=== PATIENT | female | born 1960 | race Caucasian/White ===

== ENCOUNTER 2018-02-25 05:31 | Outpatient (CLI) | payer OTHER ==
[~2018-02-25] VITALS: Ht 157.5 cm; Wt 86.2 kg
[~2018-02-25 05:31] MED LIST: AMOX-355 PO; CLN.1T PO; HYDR1TAB PO; PRD20T PO; TRIA1TAB3 PO
[2018-02-25] MEDS ORDERED: ASPI-586 PO (15:49)
[2018-02-25] MEDS ORDERED: LOVA20TA2 PO (15:49)
[2018-02-25] MEDS ORDERED: METO100T12 PO ×2 (15:49→15:54)
[2018-02-25] MEDS ORDERED: HYDR25TA4 PO (15:49)
[2018-02-25] MEDS ORDERED: FEXO-46 PO (15:49)
[2018-02-25] MEDS ORDERED: RANI-515 PO (15:49)
[2018-02-25] MEDS ORDERED: NAPR-915 PO (15:49)
== END 2018-02-25 16:00 ==
LOC: PREOP 05:31
PROVIDERS: ATTEND Otolaryngology Otolaryngology/Facial Plastic Surgery
DX: Z01.818 Encounter for other preprocedural examination (principal)

== ENCOUNTER 2018-03-05 06:53 | Day surgery (SDC) | payer OTHER ==
[~2018-03-05] VITALS: Ht 157.5 cm; Wt 86.2 kg
[~2018-03-05 06:53] MED LIST changes: +ASPI-586 PO; +FEXO-46 PO; +HYDR25TA4 PO; +LOVA20TA2 PO; +METO100T12 PO; +NAPR-915 PO; +RANI-515 PO
[2018-03-05 07:10] VITALS: BP 128/81
[2018-03-05] MEDS ORDERED: LACTATED RINGERS 1,000 ML IV PRN (07:20)
[2018-03-05] MEDS ORDERED: FAMOTIDINE 20MG/2ML IV (PEPCID) ONE (07:25)
[2018-03-05] MEDS ORDERED: AMPICILLIN/SULBACTAM INJECTION 1.5 GM in NS (IVPB) 100 ML IV ONE (07:30)
[2018-03-05] MEDS ORDERED: HYDROCORTISONE 100 MG/2 ML (Solu-CORTEF) VIAL IV ONE (07:30)
[2018-03-05] MEDS ORDERED: FAMOTIDINE 20MG/2ML IV (PEPCID) IV ONE (07:30)
[2018-03-05] MEDS ORDERED: ONDANSETRON 4 MG/2 ML (SDV) Z0FRAN ONE (07:40)
[2018-03-05] MEDS ORDERED: SEVOFLURANE (ULTANE) 15 ML INHAL SOLN ONE ×5 (07:40→09:27)
[2018-03-05] MEDS ORDERED: LIDOCAINE PF 2% 5 ML (XYLOCAINE) VIAL ONE (07:40)
[2018-03-05] MEDS ORDERED: ROCURONIUM 10 MG/ML 5 ML SYRINGE IV ONE (07:40)
[2018-03-05] MEDS ORDERED: proPOfol 200 MG/20 ML (DIPRIVAN) VIAL IV ONE (07:40)
[2018-03-05] MEDS ORDERED: DEXAMETHASONE 10 MG/ML (DECADRON) 1 ML VIAL ONE (07:40)
[2018-03-05] MEDS ORDERED: MIDAZOLAM 2 MG/2 ML (VERSED) VIAL ONE (07:41)
[2018-03-05] MEDS ORDERED: fentaNYL INJECTION 100 MCG/2 ML AMP ONE ×2 (07:41→09:29)
[2018-03-05] MEDS ORDERED: LIDOCAINE/EPI 1%-1:200,000 (XYLOCAINE) 10 ML VIAL ONE (08:34)
[2018-03-05] MEDS ORDERED: COCAINE HCL 4% 2 ML SYR ONE (08:34)
[2018-03-05] MEDS ORDERED: PHENYLEPHRINE 0.5% NASAL SPR (NEO-SYNEPHRINE) REG ONE (08:34)
[2018-03-05] MEDS ORDERED: BSS 15 ML ONE (08:34)
[2018-03-05] MEDS ORDERED: NEOSTIGMINE 1 MG/ML 5 ML SYRINGE ONE (09:44)
[2018-03-05] MEDS ORDERED: GLYCOPYRROLATE 0.2 MG/ML (ROBINUL) 2 ML VIAL ONE (09:44)
--- NOTE | 2018-03-05 10:00 | Progress Note-Post Operative ---
Post-Operative Progess Note Surgeon (s)/Technical Business Systems Analyst (s) Surgeon HUAN ZULETA MD Technical Business Systems Analyst n/a Pre-Operative Diagnosis CHRONIC SINUSITIS Post-Operative Diagnosis same Post-Op Procedure Note Date of Procedure: March 05, 2018 Name of Procedure Performed: Bilat Revision ESS, Bilat Red of Inf Turbs Description & Findings Description and Findings: n/a Anesthesia Type get Estimated Blood Loss minimal Packing none. Specimen(s) collected/removed bilat chroic sinusitis HUAN ZULETA MD March 05, 2018 10:00 am
[2018-03-05] MEDS ORDERED: D5 1/2 NS W/KCL 20 MEQ/L 1,000 ML IV SCH (10:01)
--- NOTE | 2018-03-05 10:01 | Progress Note-Pre Operative ---
Pre-Operative Progress Note H&P Reviewed The H&P was reviewed, patient examined and no changes noted. Date Seen by Provider: March 05, 2018 Time Seen by Provider: 08: Date H&P Reviewed: March 05, 2018 Time H&P Reviewed: :30 Pre-Operative Diagnosis: Bilat Chronic Sinsutis, Bilat HYper of Inf Turbs, REc headaches HUAN ZULETA MD March 05, 2018 10:01 am
[2018-03-05] MEDS ORDERED: MEPERIDINE (DEMEROL) INJ 50 MG/ML IVP PRN (10:15)
[2018-03-05] MEDS ORDERED: ACETAMINOPHEN 325 MG TABLET/CAPLET (TYLENOL) PO PRN (10:15)
[2018-03-05] MEDS ORDERED: ONDANSETRON 4 MG/2 ML (SDV) Z0FRAN IVP PRN (10:15)
[2018-03-05] MEDS ORDERED: morphine INJ 10 MG/ML 1ML (SYR OR VIAL) IVP PRN (10:15)
[2018-03-05] MEDS ORDERED: PROMETHAZINE INJ 25 MG/ML (PHENERGAN) AMP IVP PRN (10:15)
[2018-03-05] MEDS ORDERED: predniSONE 20 MG TAB PO ONE (10:15)
[2018-03-05] MEDS ORDERED: HYDROcodone/APAP 5 MG/325 MG (LORTAB) TAB PO PRN (10:15)
[2018-03-05 11:00] VITALS: BP 140/85
[2018-03-05] MEDS ORDERED: PRD20T PO (11:18)
[2018-03-05] MEDS ORDERED: AMOX-355 PO (11:18)
[2018-03-05] MEDS ORDERED: ACHD5005 PO (11:18)
[2018-03-05 11:30] VITALS: BP 142/75
[2018-03-05 12:00] VITALS: BP 127/56
[2018-03-05 12:25] VITALS: BP 127/56
--- NOTE | 2018-03-05 12:51 | Anesthesia-General Post-Op ---
General Patient Condition Mental Status/LOC: Same as Preop Cardiovascular: Satisfactory Nausea/Vomiting: Absent Respiratory: Satisfactory Pain: Controlled Complications: Absent Post Op Complications Complications None Follow Up Care/Instructions Patient Instructions None needed. Anesthesia/Patient Condition Patient Condition Patient is doing well, no complaints, stable vital signs, no apparent adverse anesthesia problems. No complications reported per nursing. KRISSY NIELSEN CRNA March 05, 2018 12:51
== END 2018-03-05 12:30 | disposition home or self-care (01) ==
LOC: SDC 06:53
PROVIDERS: ATTEND Otolaryngology Otolaryngology/Facial Plastic Surgery
DX: J32.2 Chronic ethmoidal sinusitis (principal); J32.0 Chronic maxillary sinusitis; J34.3 Hypertrophy of nasal turbinates; I10 Essential (primary) hypertension; Z79.82 Long term (current) use of aspirin; Z79.899 Other long term (current) drug therapy
CPT/HCPCS: 36415; 84132; 87081; 88305